=== PATIENT | male | born 1950 | race Caucasian/White ===

== ENCOUNTER 2022-07-30 04:00 | Inpatient (IN) ==
--- NOTE | 2022-07-30 04:15 | DR.ABDMALE ---
HPI Time seen Time Seen by Provider: 07/30/22 04:15 COVID-19 Coronavirus risk:travel/contact w/high risk person: No Has patient experienced Coronavirus symptoms: No Reviewed Nurses Notes Review: Yes ROS Review of Systems Constitutional: No Symptoms Reported; negative Weakness or Fatigue Eyes: No Symptoms Reported; negative Blurred Vision ENTM: No Symptoms Reported; negative Nose Discharge or Nose Congestion Respiratoy: No Symptoms Reported; negative Moist Cough, Short of Breath or Wheezing Cardiovascular: No Symptoms Reported; negative Chest Pain or Edema Gastrointestinal/Abdominal: Abdominal Pain and Nausea; negative Constipation, Diarrhea or Vomiting Genitourinary: No Symptoms Reported and Pain (SUPRAPUBIC PAIN.); negative Dysuria or Hematuria Neurological: No Symptoms Reported; negative Headache, Weakness or Dizziness Musculoskeletal: No Symptoms Reported and See HPI; negative Muscle Pain Integumentary: No Symptoms Reported; negative Rash or Juandice Hematologic/Lymphatic: No Symptoms Reported; negative Easy Bleeding or Easy Bruising Endocrine: No Symptoms Reported; negative Increased Thirst Psychiatric: No Symptoms Reported All Other Systems: Reviewed and Negative PE Vital Signs Vital Signs: Pulse Resp BP Pulse Ox O2 Del Method 07/30/22 05:30 80 94 L 07/30/22 05:30 128/71 07/30/22 05:30 20 07/30/22 05:15 81 94 L 07/30/22 05:00 82 95 07/30/22 05:00 146/72 07/30/22 04:53 83 97 07/30/22 04:30 88 93 L 07/30/22 04:30 141/77 07/30/22 04:11 90 20 138/74 94 L Room Air General Limitations: No Limitations General Appearance: Alert and In No Apparent Distress Head Head Exam: Normal Inspection and Atraumatic Eyes Eye exam: Normal Appearance and PERRL; negative Scleral Icterus or Conjunctival Injection ENT ENT Exam: Normal Exam, Normal Oropharynx, Normal External Ear Exam and TM's Normal Bilaterally Neck Neck Exam: Normal Inspection and Trachea Midline; negative Tenderness Chest Chest Inspection: Normal Inspection Respiratory Respiratory Exam: Normal Lung Sounds Bilat and Chest Wall Tenderness; negative Accessory Muscle Use or Respiratory Distress Cardiovascular Cardiovascular Exam: Regular Rate and Normal Rhythm; negative Irregular Rhythm or Systolic Murmur Abdominal Exam Abdominal Exam: Normal Bowel Sounds, Soft and Tenderness Abdominal Tenderness: RLQ and Severe Rectal Rectal Exam: Deferred Back Back Exam: Normal Inspection; negative (R) CVA Tenderness or (L) CVA Tenderness Extremeties Extremities Exam: Normal Inspection, Normal Capillary Refill and Calf Tenderne ss; negative Tenderness Exam: Male: Deferred Neurologic Neurological Exam: Alert and Oriented X3; negative Motor Sensory Deficit Psychiatric Psychiatric Exam: Normal Affect and Normal Mood Skin Skin Exam: Intact MDM Differential Diagnosis Differential Diagnosis: Bowel Obstruction, Diverticular disease, Inflammatory BD and Pancreatitis COURSE Treatment Treatment: SEE ORDERS DONE WHILE PATIENT WAS IN ER. LABS AND CT REPORT DISCUSSED WITH PATIENT. ZOSYN 3.375GM IVPB WAS GIVEN IN ER. DEMOROL 25MG AND ZOFRAN 4MG IV WAS GIVEN IN ER. PATIENT WILL BE ACCEPTED TO HOSPITAL FOR FURTHER MANAGEMENT. Consultation Consultation Comments: DISCUSSED PATIENT WITH DR. SANTIAGO. PATIENT TO BE ADMITTED FOR SURGERY. DR. KIM, PCP WILL ADMIT PATIENT. DISCUSSED PATIENT WITH DR. KIM. Education/Counseling Education/Counseling: Patient Educated On: Treatment and Diagnosis ROR Labs Reviewed Laboratory Results Reviewed?: Yes Result Diagrams: 07/30/22 04:15 07/30/22 04:15 Laboratory: WBC 10.9 X10^3/uL (3.6-10.0) H 07/30/22 04:15 RBC 5.10 X10^6/uL (4.7-6.0) 07/30/22 04:15 Hgb 14.4 g/dL (13.5-18.0) 07/30/22 04:15 Hct 42.7 % (42.0-54.0) 07/30/22 04:15 MCV 83.7 fL (80.0-100.0) 07/30/22 04:15 MCH 28.3 pg (27.0-34.0) 07/30/22 04:15 MCHC 33.8 g/dL (33.0-35.0) 07/30/22 04:15 RDW 14.4 % (11.6-16.5) 07/30/22 04:15 Plt Count 170 X10^3/uL (150.0-450.0) 07/30/22 04:15 MPV 7.9 fL (7.4-11.0) 07/30/22 04:15 Neut % (Auto) 86.4 % (42.0-75.0) H 07/30/22 04:15 Lymph % (Auto) 6.0 % (21.0-51.0) L 07/30/22 04:15 [place] % (Auto) 6.9 % (0.0-13.0) 07/30/22 04:15 Eos % (Auto) 0.3 % (0.9-2.9) L 07/30/22 04:15 Baso % (Auto) 0.4 % (0.2-1.0) 07/30/22 04:15 Neut # (Auto) 9.4 x10^3/uL (2.2-4.8) H 07/30/22 04:15 Lymph # (Auto) 0.7 X10^3/uL (1.3-2.9) L 07/30/22 04:15 [place] # (Auto) 0.8 x10^3/uL (0.3-0.8) 07/30/22 04:15 Eos # (Auto) 0.0 x10^3/uL (0.0-0.2) 07/30/22 04:15 Baso # (Auto) 0.0 X10^3/uL (0.0-0.1) 07/30/22 04:15 Absolute Nucleated RBC 0.1 /100WBC 07/30/22 04:15 Sodium 138 mmol/L (136-145) 07/30/22 04:15 Corrected Sodium 139 mmol/L (136-145) 07/30/22 04:15 Potassium 4.2 mmol/L (3.5-5.1) 07/30/22 04:15 Chloride 101 mmol/L (98-107) 07/30/22 04:15 Carbon Dioxide 30.1 mmol/L (21-32) 07/30/22 04:15 BUN 14 mg/dL (7-18) 07/30/22 04:15 Creatinine 1.24 mg/dL (0.70-1.30) 07/30/22 04:15 Est GFR (MDRD) Af Amer > 60 (>60) 07/30/22 04:15 Est GFR (MDRD) Non-Af > 60 (>60) 07/30/22 04:15 Glucose 138 mg/dL (65-99) H 07/30/22 04:15 Calcium 8.5 mg/dL (8.5-10.1) 07/30/22 04:15 Corrected Calcium TNP 07/30/22 04:15 Total Bilirubin 0.90 mg/dL (0.2-1.0) 07/30/22 04:15 AST 14 Units/L (15-37) L 07/30/22 04:15 ALT 52 Units/L (12-78) 07/30/22 04:15 Alkaline Phosphatase 66 Units/L (46-116) 07/30/22 04:15 Total Protein 7.5 g/dL (6.4-8.2) 07/30/22 04:15 Albumin 3.9 g/dL (3.4-5.0) 07/30/22 04:15 Globulin 3.6 g/dL (2.5-4.5) 07/30/22 04:15 Albumin/Globulin Ratio 1.1 Ratio (1.1-2.1) 07/30/22 04:15 Amylase 29 Units/L (25-115) 07/30/22 04:15 Lipase 97 Units/L (73-393) 07/30/22 04:15 XRAY XRAY Interpreted by: Radiologist (REPORT NOTED.) and Self EKG Rate: 75 [place]: Normal Rhythm: NSR Block: None Hypertrophy: None ST: Nonsp Opioid Opioid Risk Tool Total: 0 Total Score Risk Category: Low Risk Copyright: Jaiden ARIAS predicting aberrant behaviors Discharge Plan Diagnosis Discharge Problem: Abdominal pain, RLQ, Borderline diabetes mellitus Acute appendicitis Qualifiers: Acute appendicitis type: unspecified acute appendicitis type Qualified Code(s): K35.80 - Unspecified acute appendicitis Hypertension Qualifiers: Hypertension type: primary hypertension Qualified Code(s): I10 - Essential (primary) hypertension Discharge Plan Patient Disposition: ADMITTED INPATIENT Condition: Stable
[2022-07-30 04:36] LABS: BASOPHILS % (AUTO) 0.4 % (0.2-1.0); EOSINOPHILS % (AUTO) 0.3 % (0.9-2.9); HEMATOCRIT 42.7 % (42.0-54.0); HEMOGLOBIN 14.4 g/dL (13.5-18.0); LYMPHOCYTES # (AUTO) 0.7 X10^3/uL (1.3-2.9); MEAN CORPUSCULAR HEMOGLOBIN 28.3 pg (27.0-34.0); MEAN CORPUSCULAR HGB CONC 33.8 g/dL (33.0-35.0); MEAN CORPUSCULAR VOLUME 83.7 fL (80.0-100.0); MEAN PLATELET VOLUME 7.9 fL (7.4-11.0); MONOCYTES # (AUTO) 0.8 x10^3/uL (0.3-0.8); MONOCYTES % (AUTO) 6.9 % (0.0-13.0); NEUTROPHILS # (AUTO) 9.4 x10^3/uL (2.2-4.8); NEUTROPHILS % (AUTO) 86.4 % (42.0-75.0); PLATELET COUNT 170 X10^3/uL (150.0-450.0); RED CELL DISTRIBUTION WIDTH 14.4 % (11.6-16.5); WHITE BLOOD COUNT 10.9 X10^3/uL (3.6-10.0)
[2022-07-30 04:38] LABS: ALANINE AMINOTRANSFERASE 52 Units/L (12-78); ALBUMIN 3.9 g/dL (3.4-5.0); ALKALINE PHOSPHATASE 66 Units/L (46-116); ASPARTATE AMINO TRANSFERASE 14 Units/L (15-37); BLOOD UREA NITROGEN 14 mg/dL (7-18); CALCIUM 8.5 mg/dL (8.5-10.1); CARBON DIOXIDE 30.1 mmol/L (21-32); CHLORIDE 101 mmol/L (98-107); COR NA(FOR HYPERGLY) 139 mmol/L (136-145); CREATININE 1.24 mg/dL (0.70-1.30); GLUCOSE 138 mg/dL (65-99); POTASSIUM 4.2 mmol/L (3.5-5.1); SODIUM 138 mmol/L (136-145); TOTAL PROTEIN 7.5 g/dL (6.4-8.2); eGFR NON BLACK RACES > 60 (>60)
[2022-07-30 04:40] LABS: AMYLASE 29 Units/L (25-115); LIPASE 97 Units/L (73-393)
[2022-07-30] MEDS ORDERED: ZOFRAN INJ 4 MG VIAL IVP ONE (05:19)
[2022-07-30] MEDS ORDERED: DEMEROL INJ IVP ONE (05:19)
[2022-07-30] MEDS ORDERED: DEMEROL INJ ONE (05:22)
[2022-07-30] MEDS ORDERED: NS 1,000 ML IV 1,000 ML ONE (05:23)
[2022-07-30] MEDS ORDERED: ZOFRAN INJ 4 MG VIAL ONE ×2 (05:23→12:25)
--- NOTE | 2022-07-30 05:24 | CT ---
HISTORYPATIENT C/O RIGHT LOWER ABD PAIN RADIATING DOWN INTO GENITALIA. PATIENT STATES THE PAIN BEGAN ALL OF A SUDDEN WHICH WOKE HIM UP. PATIENTS ABD IS NOTED TO BE VERY DISTENDED AND TENDER TO PALPATION. .brSTUDYABDOMEN/PELVIS W/O CONCOMPARISONNoneTECHNIQUECT of the abdomen and pelvis obtained with IV contrast. Dose reduction techniques including Automated Exposure Control (AEC) and adjustment of mA and kV were utilized.FINDINGSVisualized portions of the lower thorax demonstrate no acute process. Right basilar scarring versus atelectasis. Coronary calcifications. Small hiatal hernia.No acute osseous abnormality. Mild multilevel degenerative changes in the visualized spine.The liver, gallbladder, spleen, pancreas, bilateral adrenal glands, and bilateral kidneys demonstrate no acute process given lack of IV contrast. Hepatic steatosis. Calcified granulomas in the spleen. Left renal cyst..No evidence of bowel obstruction. Diverticulosis without evidence of diverticulitis. Thickened, dilated appendix measuring up to 1.3 cm in diameter with surrounding periappendiceal induration. There is a single indeterminate locule of mesenteric gas seen on series 3, image 55. left inguinal hernia containing non incarcerated loop of sigmoid colon. Small fat filled right inguinal hernia.The bladder is unremarkable. No free air or fluid. Nonaneurysmal aorta. Scattered vascular calcifications.IMPRESSIONAcute appendicitis. There is a single locule of free gas in the adjacent mesentery.Diverticulosis without evidence of diverticulitis.Electronically signed by: ALEXSANDER LYNN (July 30, 2022 05:22:31)
[2022-07-30] MEDS ORDERED: ZOSYN VIAL 3.375 GRAMS 3.375 G in NS 100 ML IV 100 ML IV ONE (05:32)
[2022-07-30] MEDS ORDERED: NS 100 ML IV 100 ML ONE ×2 (05:38→12:14)
[2022-07-30] MEDS ORDERED: ZOSYN VIAL 3.375 GRAMS IV ONE (05:38)
--- NOTE | 2022-07-30 05:43 | EKG ---
Test Reason : PRE OP Blood Pressure : */* mmHG Vent. Rate : 75 BPM Atrial Rate : 75 BPM P-R Int : 186 ms QRS Dur : 94 ms QT Int : 378 ms P-R-T Axes : 24 6 66 degrees QTc Int : 422 ms Normal sinus rhythm Normal ECG No previous ECGs available Confirmed by Bruce Alvarado ([id number]) on 07/30/2022 8:05:38 AM Referred By: Confirmed By: Bruce Alvarado
--- NOTE | 2022-07-30 05:54 | RAD ---
HISTORYPRE OP-APPYSTUDYCHEST, 1 VIEWCOMPARISONNoneFINDINGSThe cardiomediastinal silhouette is normal in size. No acute airspace disease. No pneumothorax or effusion. The bony thorax appears intact.IMPRESSIONNo acute cardiopulmonary disease.Electronically signed by: ALEXSANDER LYNN (July 30, 2022 05:50:17)
[2022-07-30] MEDS ORDERED: DILAUDID INJ IVP PRN ×2 (05:56→13:53)
[2022-07-30] MEDS ORDERED: NS 1,000 ML IV 1,000 ML IV SCH (06:00)
[2022-07-30 06:22] VITALS: BMI 29.8
[2022-07-30] MEDS ORDERED: DIPRIVAN VIAL 20 ML ONE (11:46)
[2022-07-30] MEDS ORDERED: XYLOCAINE 2 % (PLAIN) ONE (11:46)
[2022-07-30] MEDS ORDERED: BRIDION ONE (11:46)
[2022-07-30] MEDS ORDERED: VERSED ONE (11:53)
[2022-07-30] MEDS ORDERED: FENTANYL VIAL INJ 100 mcg ONE (11:53)
[2022-07-30] MEDS ORDERED: ZEMURON 100 MG VIAL ONE (11:57)
[2022-07-30] MEDS ORDERED: ANCEF VIAL 1 GRAM ONE (12:14)
[2022-07-30] MEDS ORDERED: LR 1,000 ML IV 1,000 ML IV ONE ×2 (12:15→13:25)
[2022-07-30] MEDS ORDERED: PEPCID 20 MG VIAL ONE (12:25)
[2022-07-30] MEDS ORDERED: ULTANE GAS IN ONE (12:27)
[2022-07-30] MEDS ORDERED: OFIRMEV IV 1000 MG VIAL 1,000 MG/100 ML VIAL IV ONE (12:45)
[2022-07-30] MEDS ORDERED: EPHEDRINE SULFATE INJ ONE (12:45)
[2022-07-30] MEDS ORDERED: NEO-SYNEPHRINE INJ ONE (12:45)
[2022-07-30] MEDS ORDERED: DECADRON INJ ONE (12:54)
[2022-07-30] MEDS ORDERED: BACTROBAN TOPICAL OINT ONE (13:07)
[2022-07-30] MEDS ORDERED: ROBINUL ONE (13:10)
[2022-07-30] MEDS ORDERED: DILAUDID INJ ONE (13:29)
[2022-07-30] MEDS ORDERED: BARHEMSYS INJ IVP PRN (13:53)
[2022-07-30] MEDS ORDERED: BENADRYL INJ 50 MG VIAL IVP PRN (13:53)
[2022-07-30] MEDS ORDERED: ZOSYN VIAL 2.25 GRAMS 2.25 G in NS 100 ML IV 100 ML IV SCH (14:00)
[2022-07-30] MEDS: D5 1/2 NS 1,000 ML 1,000 ML IV SCH ×2 (14:54→21:58)
[2022-07-30] MEDS: ZOSYN VIAL 3.375 GRAMS 3.375 G in NS 100 ML IV 100 ML IV SCH ×3 (14:55→21:03)
[2022-07-30] MEDS: ZOFRAN INJ 4 MG VIAL IVP PRN (21:01)
[2022-07-30] MEDS: DILAUDID INJ IVP PRN (21:04)
[2022-07-31 01:18] LABS: BILIRUBIN,URINE NEGATIVE (NEGATIVE); BLOOD/HEMOGLOBIN,URINE NEGATIVE (NEGATIVE); GLUCOSE, URINE NEGATIVE (NEGATIVE); KETONES,URINE NEGATIVE (NEGATIVE); LEUKOCYTE ESTERASE ,URINE 1+ (NEGATIVE); NITRITES,URINE NEGATIVE (NEGATIVE); PROTEIN,URINE 2+ (NEGATIVE); UROBILINOGEN,URINE NORMAL (NORMAL)
[2022-07-31 01:26] LABS: APPEARANCE,URINE CLEAR (CLEAR); COLOR,URINE DARK YELLOW (YELLOW)
[2022-07-31 01:27] LABS: BACTERIA,URINE TRACE /HPF (NEGATIVE); HYALINE CASTS, URINE FEW /LPF (NEGATIVE); RBC,URINE 0-2 /HPF (0-3); SQUAMOUS EPITHELIAL CELL,UR RARE /HPF (NEGATIVE)
[2022-07-31] MEDS: D5 1/2 NS 1,000 ML 1,000 ML IV SCH (05:07)
[2022-07-31] MEDS: ZOSYN VIAL 3.375 GRAMS 3.375 G in NS 100 ML IV 100 ML IV SCH ×3 (05:08→21:13)
[2022-07-31 05:22] LABS: BASOPHILS % (AUTO) 0.2 % (0.2-1.0); HEMATOCRIT 37.7 % (42.0-54.0); HEMOGLOBIN 12.5 g/dL (13.5-18.0); LYMPHOCYTES # (AUTO) 0.4 X10^3/uL (1.3-2.9); LYMPHOCYTES % (AUTO) 4.1 % (21.0-51.0); MEAN CORPUSCULAR HEMOGLOBIN 28.2 pg (27.0-34.0); MEAN CORPUSCULAR HGB CONC 33.2 g/dL (33.0-35.0); MEAN CORPUSCULAR VOLUME 84.8 fL (80.0-100.0); MEAN PLATELET VOLUME 8.4 fL (7.4-11.0); MONOCYTES # (AUTO) 0.5 x10^3/uL (0.3-0.8); MONOCYTES % (AUTO) 4.6 % (0.0-13.0); NEUTROPHILS # (AUTO) 9.2 x10^3/uL (2.2-4.8); NEUTROPHILS % (AUTO) 91.1 % (42.0-75.0); PLATELET COUNT 138 X10^3/uL (150.0-450.0); RED BLOOD COUNT 4.44 X10^6/uL (4.7-6.0); RED CELL DISTRIBUTION WIDTH 14.7 % (11.6-16.5); WHITE BLOOD COUNT 10.1 X10^3/uL (3.6-10.0)
[2022-07-31 05:35] LABS: ALANINE AMINOTRANSFERASE 35 Units/L (12-78); ALBUMIN 2.9 g/dL (3.4-5.0); ALKALINE PHOSPHATASE 48 Units/L (46-116); ASPARTATE AMINO TRANSFERASE 14 Units/L (15-37); BLOOD UREA NITROGEN 20 mg/dL (7-18); CALCIUM 7.9 mg/dL (8.5-10.1); CARBON DIOXIDE 29.1 mmol/L (21-32); CHLORIDE 102 mmol/L (98-107); COR CA(FOR HYPOALB) 8.8 mg/dL (8.5-10.1); COR NA(FOR HYPERGLY) 139 mmol/L (136-145); CREATININE 1.41 mg/dL (0.70-1.30); GLUCOSE 195 mg/dL (65-99); POTASSIUM 4.1 mmol/L (3.5-5.1); SODIUM 137 mmol/L (136-145); TOTAL PROTEIN 6.7 g/dL (6.4-8.2); eGFR NON BLACK RACES 53 (>60)
[2022-07-31 06:10] LABS: BAND NEUTROPHILS % 5 % (0-10); PLATELET MORPHOLOGY COMMENT NORMAL (NORMAL)
[2022-07-31] MEDS: DILAUDID INJ IVP PRN ×2 (08:28→21:21)
[2022-07-31] MEDS ORDERED: PERCOCET TAB 5/325 MG PO PRN (09:36)
[2022-07-31] MEDS: ZOFRAN INJ 4 MG VIAL IVP PRN ×2 (10:33→21:22)
[2022-07-31] MEDS: LR 1,000 ML IV 1,000 ML IV SCH ×3 (10:38→21:12)
--- NOTE | 2022-07-31 12:07 | DR.PROGNOT ---
HOSPITAL PROGRESS NOTE Progress Note for Day of: Progress Note Date: 07/31/22 Chief Complaint Chief Complaint: PO lap appendectomy for ruptured appedix . doing very well with moderate pain . minimal drainage in JOHANNY .. tolerating liquid diet . Past Medical Family Social History Past Med/Fam/Surg Hx: No changes since H&P Allergies: Allergies codeine Allergy (Verified 07/30/22 04:19) Sulfa (Sulfonamide Antibiotics) Allergy (Verified 07/30/22 04:19) Vital Signs Vital Signs: Temperature 98.2 F Pulse Rate [Left Radial] 74 Pulse Rate 93 Respiratory Rate 20 Blood Pressure [Left Arm] 125/73 Blood Pressure [Left Radial 128/63 Artery] Blood Pressure 121/79 O2 Sat by Pulse Oximetry 92 Physical Exam Oriented: Normal Respiratory: Normal Cardiovascular: Normal GI:Auscultation: Decreased (soft abdomen , BS hypoactive ..) Mood Description: Calm Speech Pattern: Clear and Appropriate Laboratory and Diagnostics Result Diagrams: 07/31/22 04:20 07/31/22 04:20 Labs: Laboratory WBC 10.1 X10^3/uL (3.6-10.0) H 07/31/22 04:20 RBC 4.44 X10^6/uL (4.7-6.0) L 07/31/22 04:20 Hgb 12.5 g/dL (13.5-18.0) L 07/31/22 04:20 Hct 37.7 % (42.0-54.0) L 07/31/22 04:20 MCV 84.8 fL (80.0-100.0) 07/31/22 04:20 MCH 28.2 pg (27.0-34.0) 07/31/22 04:20 MCHC 33.2 g/dL (33.0-35.0) 07/31/22 04:20 RDW 14.7 % (11.6-16.5) 07/31/22 04:20 Plt Count 138 X10^3/uL (150.0-450.0) L 07/31/22 04:20 Plt Count Comment Decreased (ADEQUATE) 07/31/22 04:20 MPV 8.4 fL (7.4-11.0) 07/31/22 04:20 Neut % (Auto) 91.1 % (42.0-75.0) H 07/31/22 04:20 Lymph % (Auto) 4.1 % (21.0-51.0) L 07/31/22 04:20 [place] % (Auto) 4.6 % (0.0-13.0) 07/31/22 04:20 Eos % (Auto) 0.0 % (0.9-2.9) L 07/31/22 04:20 Baso % (Auto) 0.2 % (0.2-1.0) 07/31/22 04:20 Neut # (Auto) 9.2 x10^3/uL (2.2-4.8) H 07/31/22 04:20 Lymph # (Auto) 0.4 X10^3/uL (1.3-2.9) L 07/31/22 04:20 [place] # (Auto) 0.5 x10^3/uL (0.3-0.8) 07/31/22 04:20 Eos # (Auto) 0.0 x10^3/uL (0.0-0.2) 07/31/22 04:20 Baso # (Auto) 0.0 X10^3/uL (0.0-0.1) 07/31/22 04:20 Absolute Nucleated RBC 0.1 /100WBC 07/31/22 04:20 Total Counted 100 07/31/22 04:20 Neutrophils % (Manual) 84 % (39-76) H 07/31/22 04:20 Band Neutrophils % 5 % (0-10) 07/31/22 04:20 Lymphocytes % (Manual) 7 % (13-43) L 07/31/22 04:20 Monocytes % (Manual) 4 % (4-9) 07/31/22 04:20 Plt Morphology Comment Normal (NORMAL) 07/31/22 04:20 RBC Morphology Normal (NORMAL) 07/31/22 04:20 Sodium 137 mmol/L (136-145) 07/31/22 04:20 Corrected Sodium 139 mmol/L (136-145) 07/31/22 04:20 Potassium 4.1 mmol/L (3.5-5.1) 07/31/22 04:20 Chloride 102 mmol/L (98-107) 07/31/22 04:20 Carbon Dioxide 29.1 mmol/L (21-32) 07/31/22 04:20 BUN 20 mg/dL (7-18) H 07/31/22 04:20 Creatinine 1.41 mg/dL (0.70-1.30) H 07/31/22 04:20 Est GFR (MDRD) Af Amer > 60 (>60) 07/31/22 04:20 Est GFR (MDRD) Non-Af 53 (>60) L 07/31/22 04:20 Glucose 195 mg/dL (65-99) H 07/31/22 04:20 Calcium 7.9 mg/dL (8.5-10.1) L 07/31/22 04:20 Corrected Calcium 8.8 mg/dL (8.5-10.1) 07/31/22 04:20 Total Bilirubin 0.80 mg/dL (0.2-1.0) 07/31/22 04:20 AST 14 Units/L (15-37) L 07/31/22 04:20 ALT 35 Units/L (12-78) 07/31/22 04:20 Alkaline Phosphatase 48 Units/L (46-116) 07/31/22 04:20 Total Protein 6.7 g/dL (6.4-8.2) 07/31/22 04:20 Albumin 2.9 g/dL (3.4-5.0) L 07/31/22 04:20 Globulin 3.8 g/dL (2.5-4.5) 07/31/22 04:20 Albumin/Globulin Ratio 0.8 Ratio (1.1-2.1) L 07/31/22 04:20 Amylase 29 Units/L (25-115) 07/30/22 04:15 Lipase 97 Units/L (73-393) 07/30/22 04:15 Specimen Type Clean catch urine 07/31/22 01:10 Urine Color Dark yellow (YELLOW) 07/31/22 01:10 Urine Appearance Clear (CLEAR) 07/31/22 01:10 Urine pH 5.0 (5.0 - 8.0) 07/31/22 01:10 Ur Specific [place] 1.025 (1.000-1.030) 07/31/22 01:10 Urine Protein 2+ (NEGATIVE) 07/31/22 01:10 Urine Glucose (UA) Negative (NEGATIVE) 07/31/22 01:10 Urine Ketones Negative (NEGATIVE) 07/31/22 01:10 Urine Blood Negative (NEGATIVE) 07/31/22 01:10 Urine Nitrite Negative (NEGATIVE) 07/31/22 01:10 Urine Bilirubin Negative (NEGATIVE) 07/31/22 01:10 Urine Urobilinogen Normal (NORMAL) 07/31/22 01:10 Ur Leukocyte Esterase 1+ (NEGATIVE) 07/31/22 01:10 Urine RBC 0-2 /HPF (0-3) 07/31/22 01:10 Urine WBC 0-2 /HPF (0-5) 07/31/22 01:10 Ur Squamous Epith Cells Rare /HPF (NEGATIVE) 07/31/22 01:10 Amorphous Sediment Trace /HPF (NEGATIVE) 07/31/22 01:10 Urine Bacteria Trace /HPF (NEGATIVE) 07/31/22 01:10 Hyaline Casts Few /LPF (NEGATIVE) 07/31/22 01:10 Urine Mucus Rare /HPF (NEGATIVE) 07/31/22 01:10 Ur Culture Indicated? No/not indicated 07/31/22 01:10 Assessment and Plan 1: ruptured appendix with localized peritonitis . on IVF and ABT . same PO care . OOB , Problem Patient Problems: Patient Problems (Updated 07/30/22 @ 05:58 by DAYNE ROLDAN) Acute appendicitis (Acute) K35.80 Abdominal pain, RLQ (Acute) R10.31 Hypertension (Acute) I10 Borderline diabetes mellitus (Acute) R73.03
[2022-08-01] MEDS: LR 1,000 ML IV 1,000 ML IV SCH ×4 (03:24→23:31)
[2022-08-01] MEDS: DILAUDID INJ IVP PRN (03:24)
[2022-08-01 05:16] LABS: BASOPHILS % (AUTO) 0.6 % (0.2-1.0); EOSINOPHILS # (AUTO) 0.1 x10^3/uL (0.0-0.2); EOSINOPHILS % (AUTO) 0.8 % (0.9-2.9); HEMATOCRIT 34.6 % (42.0-54.0); HEMOGLOBIN 11.6 g/dL (13.5-18.0); LYMPHOCYTES # (AUTO) 0.5 X10^3/uL (1.3-2.9); LYMPHOCYTES % (AUTO) 6.5 % (21.0-51.0); MEAN CORPUSCULAR HEMOGLOBIN 28.2 pg (27.0-34.0); MEAN CORPUSCULAR HGB CONC 33.5 g/dL (33.0-35.0); MEAN CORPUSCULAR VOLUME 84.4 fL (80.0-100.0); MEAN PLATELET VOLUME 8.3 fL (7.4-11.0); MONOCYTES # (AUTO) 0.5 x10^3/uL (0.3-0.8); MONOCYTES % (AUTO) 6.8 % (0.0-13.0); NEUTROPHILS # (AUTO) 6.6 x10^3/uL (2.2-4.8); NEUTROPHILS % (AUTO) 85.3 % (42.0-75.0); PLATELET COUNT 125 X10^3/uL (150.0-450.0); RED CELL DISTRIBUTION WIDTH 14.6 % (11.6-16.5); WHITE BLOOD COUNT 7.7 X10^3/uL (3.6-10.0)
[2022-08-01] MEDS: ZOSYN VIAL 3.375 GRAMS 3.375 G in NS 100 ML IV 100 ML IV SCH ×3 (05:21→21:03)
[2022-08-01 05:32] LABS: ALANINE AMINOTRANSFERASE 38 Units/L (12-78); ALBUMIN 2.6 g/dL (3.4-5.0); ALKALINE PHOSPHATASE 43 Units/L (46-116); ASPARTATE AMINO TRANSFERASE 18 Units/L (15-37); BLOOD UREA NITROGEN 16 mg/dL (7-18); CALCIUM 7.8 mg/dL (8.5-10.1); CARBON DIOXIDE 30.8 mmol/L (21-32); CHLORIDE 104 mmol/L (98-107); COR CA(FOR HYPOALB) 8.9 mg/dL (8.5-10.1); CREATININE 1.03 mg/dL (0.70-1.30); GLUCOSE 101 mg/dL (65-99); POTASSIUM 3.6 mmol/L (3.5-5.1); SODIUM 138 mmol/L (136-145); TOTAL PROTEIN 6.2 g/dL (6.4-8.2); eGFR NON BLACK RACES > 60 (>60)
--- NOTE | 2022-08-01 08:00 | DR.PROGNOT ---
HOSPITAL PROGRESS NOTE Progress Note for Day of: Progress Note Date: 08/01/22 Chief Complaint Chief Complaint: PO lap appendectomy for ruptured appendix . Doing better today, passing flatus but no bowel movement yet. WBC is 7.7. Normal electrolytes and liver function tests Afebrile for 24 hours. Past Medical Family Social History Past Med/Fam/Surg Hx: No changes since H&P Allergies: Allergies codeine Allergy (Verified 07/30/22 04:19) Sulfa (Sulfonamide Antibiotics) Allergy (Verified 07/30/22 04:19) Vital Signs Vital Signs: Temperature 98.0 F Pulse Rate [Left Radial] 75 Pulse Rate 93 Respiratory Rate 20 Blood Pressure [Left Arm] 131/74 Blood Pressure [Left Radial 128/63 Artery] Blood Pressure 121/79 O2 Sat by Pulse Oximetry 93 Physical Exam Oriented: Normal Respiratory: Normal Cardiovascular: Normal GI:Auscultation: Decreased (soft abdomen , BS hypoactive ..) Mood Description: Calm Speech Pattern: Clear and Appropriate Laboratory and Diagnostics Result Diagrams: 08/01/22 04:50 08/01/22 04:50 Labs: Laboratory WBC 7.7 X10^3/uL (3.6-10.0) 08/01/22 04:50 RBC 4.10 X10^6/uL (4.7-6.0) L 08/01/22 04:50 Hgb 11.6 g/dL (13.5-18.0) L 08/01/22 04:50 Hct 34.6 % (42.0-54.0) L 08/01/22 04:50 MCV 84.4 fL (80.0-100.0) 08/01/22 04:50 MCH 28.2 pg (27.0-34.0) 08/01/22 04:50 MCHC 33.5 g/dL (33.0-35.0) 08/01/22 04:50 RDW 14.6 % (11.6-16.5) 08/01/22 04:50 Plt Count 125 X10^3/uL (150.0-450.0) L 08/01/22 04:50 Plt Count Comment Decreased (ADEQUATE) 07/31/22 04:20 MPV 8.3 fL (7.4-11.0) 08/01/22 04:50 Neut % (Auto) 85.3 % (42.0-75.0) H 08/01/22 04:50 Lymph % (Auto) 6.5 % (21.0-51.0) L 08/01/22 04:50 [place] % (Auto) 6.8 % (0.0-13.0) 08/01/22 04:50 Eos % (Auto) 0.8 % (0.9-2.9) L 08/01/22 04:50 Baso % (Auto) 0.6 % (0.2-1.0) 08/01/22 04:50 Neut # (Auto) 6.6 x10^3/uL (2.2-4.8) H 08/01/22 04:50 Lymph # (Auto) 0.5 X10^3/uL (1.3-2.9) L 08/01/22 04:50 [place] # (Auto) 0.5 x10^3/uL (0.3-0.8) 08/01/22 04:50 Eos # (Auto) 0.1 x10^3/uL (0.0-0.2) 08/01/22 04:50 Baso # (Auto) 0.0 X10^3/uL (0.0-0.1) 08/01/22 04:50 Absolute Nucleated RBC 0.0 /100WBC 08/01/22 04:50 Total Counted 100 07/31/22 04:20 Neutrophils % (Manual) 84 % (39-76) H 07/31/22 04:20 Band Neutrophils % 5 % (0-10) 07/31/22 04:20 Lymphocytes % (Manual) 7 % (13-43) L 07/31/22 04:20 Monocytes % (Manual) 4 % (4-9) 07/31/22 04:20 Plt Morphology Comment Normal (NORMAL) 07/31/22 04:20 RBC Morphology Normal (NORMAL) 07/31/22 04:20 Sodium 138 mmol/L (136-145) 08/01/22 04:50 Corrected Sodium TNP 08/01/22 04:50 Potassium 3.6 mmol/L (3.5-5.1) 08/01/22 04:50 Chloride 104 mmol/L (98-107) 08/01/22 04:50 Carbon Dioxide 30.8 mmol/L (21-32) 08/01/22 04:50 BUN 16 mg/dL (7-18) 08/01/22 04:50 Creatinine 1.03 mg/dL (0.70-1.30) 08/01/22 04:50 Est GFR (MDRD) Af Amer > 60 (>60) 08/01/22 04:50 Est GFR (MDRD) Non-Af > 60 (>60) 08/01/22 04:50 Glucose 101 mg/dL (65-99) H 08/01/22 04:50 Calcium 7.8 mg/dL (8.5-10.1) L 08/01/22 04:50 Corrected Calcium 8.9 mg/dL (8.5-10.1) 08/01/22 04:50 Total Bilirubin 0.40 mg/dL (0.2-1.0) 08/01/22 04:50 AST 18 Units/L (15-37) 08/01/22 04:50 ALT 38 Units/L (12-78) 08/01/22 04:50 Alkaline Phosphatase 43 Units/L (46-116) L 08/01/22 04:50 Total Protein 6.2 g/dL (6.4-8.2) L 08/01/22 04:50 Albumin 2.6 g/dL (3.4-5.0) L 08/01/22 04:50 Globulin 3.6 g/dL (2.5-4.5) 08/01/22 04:50 Albumin/Globulin Ratio 0.7 Ratio (1.1-2.1) L 08/01/22 04:50 Amylase 29 Units/L (25-115) 07/30/22 04:15 Lipase 97 Units/L (73-393) 07/30/22 04:15 Specimen Type Clean catch urine 07/31/22 01:10 Urine Color Dark yellow (YELLOW) 07/31/22 01:10 Urine Appearance Clear (CLEAR) 07/31/22 01:10 Urine pH 5.0 (5.0 - 8.0) 07/31/22 01:10 Ur Specific [place] 1.025 (1.000-1.030) 07/31/22 01:10 Urine Protein 2+ (NEGATIVE) 07/31/22 01:10 Urine Glucose (UA) Negative (NEGATIVE) 07/31/22 01:10 Urine Ketones Negative (NEGATIVE) 07/31/22 01:10 Urine Blood Negative (NEGATIVE) 07/31/22 01:10 Urine Nitrite Negative (NEGATIVE) 07/31/22 01:10 Urine Bilirubin Negative (NEGATIVE) 07/31/22 01:10 Urine Urobilinogen Normal (NORMAL) 07/31/22 01:10 Ur Leukocyte Esterase 1+ (NEGATIVE) 07/31/22 01:10 Urine RBC 0-2 /HPF (0-3) 07/31/22 01:10 Urine WBC 0-2 /HPF (0-5) 07/31/22 01:10 Ur Squamous Epith Cells Rare /HPF (NEGATIVE) 07/31/22 01:10 Amorphous Sediment Trace /HPF (NEGATIVE) 07/31/22 01:10 Urine Bacteria Trace /HPF (NEGATIVE) 07/31/22 01:10 Hyaline Casts Few /LPF (NEGATIVE) 07/31/22 01:10 Urine Mucus Rare /HPF (NEGATIVE) 07/31/22 01:10 Ur Culture Indicated? No/not indicated 07/31/22 01:10 Assessment and Plan 1: ruptured appendix with localized peritonitis . on IVF and ABT . same PO care . OOB , To remove Ramone-Bergeron drain later on today , advance his diet and DVT prophylaxis. Problem Patient Problems: Patient Problems (Updated 07/30/22 @ 05:58 by DAYNE ROLDAN) Acute appendicitis (Acute) K35.80 Abdominal pain, RLQ (Acute) R10.31 Hypertension (Acute) I10 Borderline diabetes mellitus (Acute) R73.03
[2022-08-01] MEDS ORDERED: LOVENOX INJ 40 MG SYR SC SCH (09:00)
[2022-08-01] MEDS: LOVENOX INJ 40 MG SYR SC SCH (09:23)
[2022-08-01] MEDS ORDERED: RESTORIL CAP 15 MG PO PRN (19:17)
[2022-08-02] MEDS: LR 1,000 ML IV 1,000 ML IV SCH (01:25)
[2022-08-02] MEDS: ZOSYN VIAL 3.375 GRAMS 3.375 G in NS 100 ML IV 100 ML IV SCH (06:00)
[2022-08-02 06:21] LABS: ALANINE AMINOTRANSFERASE 43 Units/L (12-78); ALBUMIN 2.6 g/dL (3.4-5.0); ALKALINE PHOSPHATASE 50 Units/L (46-116); ASPARTATE AMINO TRANSFERASE 29 Units/L (15-37); BLOOD UREA NITROGEN 11 mg/dL (7-18); CARBON DIOXIDE 27.9 mmol/L (21-32); CHLORIDE 105 mmol/L (98-107); COR CA(FOR HYPOALB) 9.1 mg/dL (8.5-10.1); CREATININE 0.99 mg/dL (0.70-1.30); GLUCOSE 93 mg/dL (65-99); POTASSIUM 3.5 mmol/L (3.5-5.1); SODIUM 141 mmol/L (136-145); TOTAL PROTEIN 6.2 g/dL (6.4-8.2); eGFR NON BLACK RACES > 60 (>60)
[2022-08-02 06:26] LABS: HEMATOCRIT 35.7 % (42.0-54.0); HEMOGLOBIN 11.9 g/dL (13.5-18.0); MEAN CORPUSCULAR HGB CONC 33.3 g/dL (33.0-35.0)
[2022-08-02 07:03] LABS: EOSINOPHILS # (AUTO) 0.2 x10^3/uL (0.0-0.2); LYMPHOCYTES # (AUTO) 0.6 X10^3/uL (1.3-2.9); MONOCYTES # (AUTO) 0.5 x10^3/uL (0.3-0.8); NEUTROPHILS # (AUTO) 3.5 x10^3/uL (2.2-4.8); WHITE BLOOD COUNT 4.9 X10^3/uL (3.6-10.0)
[2022-08-02 07:04] LABS: BASOPHILS % (AUTO) 0.7 % (0.2-1.0); EOSINOPHILS % (AUTO) 3.5 % (0.9-2.9); LYMPHOCYTES % (AUTO) 12.7 % (21.0-51.0); MEAN CORPUSCULAR HEMOGLOBIN 28.2 pg (27.0-34.0); MEAN CORPUSCULAR VOLUME 84.8 fL (80.0-100.0); MEAN PLATELET VOLUME 8.7 fL (7.4-11.0); MONOCYTES % (AUTO) 10.8 % (0.0-13.0); NEUTROPHILS % (AUTO) 72.3 % (42.0-75.0); PLATELET COUNT 100 X10^3/uL (150.0-450.0); RED BLOOD COUNT 4.21 X10^6/uL (4.7-6.0); RED CELL DISTRIBUTION WIDTH 14.5 % (11.6-16.5)
[2022-08-02 07:11] LABS: PLATELET MORPHOLOGY COMMENT NORMAL (NORMAL)
[2022-08-02 08:29] VITALS: BP 188/98; PULSE 77; TEMP 98.7; O2SAT 94
[2022-08-02] MEDS: LOVENOX INJ 40 MG SYR SC SCH (09:10)
== END 2022-08-02 12:30 | disposition home health service (06) | DRG 373 ==
LOC: ER 04:10 → MED/SURG 04:10 → OBSVTOIN 05:43 → MED/SURG 06:08
PROVIDERS: ADMIT Obstetrics & Gynecology Obstetrics; ATTEND Obstetrics & Gynecology Obstetrics
PROC: APPYLAP (ICD-10-PCS; 2022-07-30 12:15)
DX: K35.32 Acute appendicitis with perforation, localized peritonitis, and gangrene, without abscess; K57.30 Diverticulosis of large intestine without perforation or abscess without bleeding